=== PATIENT | female | born 1990 | race Hispanic/Latino ===

== ENCOUNTER 2023-07-23 00:51 | Day surgery (SDC) | payer OTHER ==
[2023-07-23] MEDS ORDERED: hydrALAZINE 20 MG/ML VIAL SLOW IVP PRN (01:15)
[2023-07-23 01:56] LABS: Bilirubin Neg (Negative); Blood, Urine 25 (Negative); Clarity Slightly Cloudy (Clear); Glucose, Urine (Dipstick) Normal (Negative); Ketone, Urine 5 mg/dL (Negative); Leukocyte 500 (Negative); Nitrite Negative (Negative); Protein, Urine (Dipstick) 30 mg/dl (Neg-Trace); Specific Gravity, Urine 1.015 (1.005-1.030)
[2023-07-23 02:00] LABS: #Basophils 0.1 10x3/uL (0.0-0.2); #Eosinphils 0.2 10x3/uL (0.0-0.5); #Monocytes 0.6 10x3/uL (0.0-1.1); #Neutrophils 9.5 10x3/uL (1.5-8.4); %Basophils 0.4 % (0.0-2.0); %Eosinophils 1.7 % (0.0-6.0); %Lymphocytes 21.5 % (18.0-47.0); %Monocytes 4.1 % (0.0-10.0); %Neutrophils 71.2 % (40.0-75.0); Hematocrit 39.6 % (34.9-44.5); Hemoglobin 13.2 g/dL (12.0-15.5); Mean Corpuscular HGB CONC 33.3 g/dL (32.0-36.0); Mean Corpuscular Hemoglobin 29.2 pg (27.0-33.0); Mean Corpuscular Volume 87.6 fl (81.6-98.3); Mean Platelet Volume 10.8 fl (7.4-10.4); Platelet Count 230 10x3/uL (150-450); RBC Distribution Width 13.2 % (11.5-14.5); Red Blood Cell (RBC) Count 4.52 10x6/uL (3.90-5.03); White Blood Cell (WBC) Count 13.3 10x3/uL (3.5-10.5)
[2023-07-23 02:11] VITALS: BMI 51.7
[2023-07-23 02:12] LABS: Bacteria/HPF 1+ HPF (None Seen); CAUTI Indications for Culture Pregnancy; RBC/HPF 0-3 HPF (0-3); Squamous Epithelial 0-3 HPF (0-3)
[2023-07-23 02:13] LABS: ALT (SGPT) 9 U/L (8-55); AST (SGOT) 12 U/L (5-34); Albumin 3.5 g/dL (3.5-5.0); Alkaline Phosphatase 60 U/L (40-110); Anion Gap 14 mmol/L (10-20); BUN (Urea Nitrogen) 8 mg/dL (7.0-18.7); Bilirubin, Total 0.5 mg/dL (0.2-1.2); Calc. Creatinine Clearance 284 mL/min (70-130); Calcium 8.5 mg/dL (7.8-10.44); Carbon Dioxide 19 mmol/L (22-29); Chloride 109 mmol/L (98-107); Estimated GFR 122; Globulin 3.1 g/dL (2.4-3.5); Glucose 103 mg/dL (70-105); Potassium 3.9 mmol/L (3.5-5.1); Protein, Total 6.6 g/dL (6.0-8.3); Sodium 138 mmol/L (136-145)
[2023-07-23 02:13] LABS: Urine Culture Reflex Yes Yes
[2023-07-23] MEDS ORDERED: Morphine 4 MG/ML VIAL ONE (02:13)
[2023-07-23] MEDS ORDERED: Morphine 4 MG/ML VIAL SLOW IVP SCH (02:15)
[2023-07-23 02:44] LABS: INR-International Normal Ratio 0.9; PTT 26.1 sec (22.0-33.0); Prothrombin Time 9.9 sec (9.5-12.1)
[2023-07-23] MEDS ORDERED: Ondansetron PF 4 MG/2 ML Vial IVP PRN (04:00)
[2023-07-23] MEDS ORDERED: Promethazine HCl 25 MG/ML VIAL IM PRN (04:00)
[2023-07-23] MEDS ORDERED: cefTRIAXone\\ROCEPHIN 1 GM in Sodium Chloride 0.9% 100 ML IVPB SCH (04:30)
[2023-07-23] MEDS ORDERED: metroNIDAZOLE 500 MG TAB PO SCH (09:00)
== END 2023-07-23 09:35 | disposition home or self-care (01) ==
LOC: CSHLD/OP 00:51
PROVIDERS: ATTEND Obstetrics & Gynecology
DX: O9A.213 Injury, poisoning and certain other consequences of external causes complicating pregnancy, third trimester (principal); S00.83XA Contusion of other part of head, initial encounter; O23.43 Unspecified infection of urinary tract in pregnancy, third trimester; N39.0 Urinary tract infection, site not specified; O98.913 Unspecified maternal infectious and parasitic disease complicating pregnancy, third trimester; A59.9 Trichomoniasis, unspecified; O36.8130 Decreased fetal movements, third trimester, not applicable or unspecified; O16.3 Unspecified maternal hypertension, third trimester; O24.313 Unspecified pre-existing diabetes mellitus in pregnancy, third trimester; Z3A.29 29 weeks gestation of pregnancy
CPT/HCPCS: 36415; 70450; 70486; 71045; 71260; 72125; 72170; 74177; 76819; 80053; 81001; 85025; 85384; 85460; 85610; 85730; 86900; 86901; 87086; 87480; 87510; 87660; 93005; 99285; G0390; J0696; J2270; J2405; J3490

== ENCOUNTER 2023-09-06 12:45 | Day surgery (SDC) | payer OTHER ==
[2023-09-06] MEDS ORDERED: hydrALAZINE 20 MG/ML VIAL SLOW IVP PRN (13:53)
[2023-09-06] MEDS ORDERED: Acetaminophen 500 MG TAB PO PRN (13:53)
[2023-09-06] MEDS ORDERED: Cyclobenzaprine 10 MG TAB PO SCH (14:00)
== END 2023-09-06 14:55 | disposition home or self-care (01) ==
LOC: CSHLD/OP 12:45
PROVIDERS: ATTEND Obstetrics & Gynecology
DX: O99.891 Other specified diseases and conditions complicating pregnancy (principal); R10.2 Pelvic and perineal pain; O24.113 Pre-existing type 2 diabetes mellitus, in pregnancy, third trimester; Z3A.36 36 weeks gestation of pregnancy; Z79.84 Long term (current) use of oral hypoglycemic drugs

== ENCOUNTER 2023-09-10 13:12 | Day surgery (SDC) | payer OTHER ==
[2023-09-10 13:43] VITALS: BMI 51.4
[2023-09-10] MEDS ORDERED: hydrALAZINE 20 MG/ML VIAL SLOW IVP PRN (16:02)
== END 2023-09-10 15:50 | disposition home or self-care (01) ==
LOC: CSHLD/OP 13:12
PROVIDERS: ATTEND Obstetrics & Gynecology
DX: O47.03 False labor before 37 completed weeks of gestation, third trimester (principal); O24.113 Pre-existing type 2 diabetes mellitus, in pregnancy, third trimester; Z3A.36 36 weeks gestation of pregnancy; Z79.84 Long term (current) use of oral hypoglycemic drugs
CPT/HCPCS: 99283

== ENCOUNTER 2023-09-15 18:00 | Inpatient (IN) | payer OTHER ==
[2023-09-15 18:36] VITALS: BMI 51.4
[2023-09-15] MEDS ORDERED: HYDROcodone/Acetaminophen 5/325 mg Tablet PO PRN (19:05)
[2023-09-15] MEDS ORDERED: Carboprost 250 MCG/ML AMP IM PRN (19:05)
[2023-09-15] MEDS ORDERED: Acetaminophen 500 MG TAB PO PRN (19:05)
[2023-09-15] MEDS ORDERED: Ondansetron PF 4 MG/2 ML Vial IVP PRN (19:05)
[2023-09-15] MEDS ORDERED: Diphenoxylate HCl/Atropine Tablet PO PRN (19:05)
[2023-09-15] MEDS ORDERED: Lidocaine 1% (PF) 30 ML VIAL SC PRN (19:05)
[2023-09-15] MEDS ORDERED: Methylergonovine 0.2 MG/ML VIAL IM PRN (19:05)
[2023-09-15] MEDS ORDERED: Zolpidem Tartrate 5 MG TAB PO PRN (19:05)
[2023-09-15] MEDS ORDERED: Misoprostol 200 MCG TAB PR PRN (19:05)
[2023-09-15] MEDS ORDERED: Promethazine HCl 25 MG/ML VIAL IM PRN (19:05)
[2023-09-15] MEDS ORDERED: hydrALAZINE 20 MG/ML VIAL SLOW IVP PRN (19:05)
[2023-09-15] MEDS ORDERED: Ibuprofen 800 MG TAB PO PRN (19:05)
[2023-09-15] MEDS ORDERED: fentaNYL 50 mcg/mL 1 mL Vial SLOW IVP PRN (19:05)
[2023-09-15] MEDS ORDERED: Oxytocin 30 units/NS 500 ML 500 ML IV SCH ×2 (19:15)
[2023-09-15 19:31] LABS: Mean Corpuscular HGB CONC 33.3 g/dL (32.0-36.0); Mean Corpuscular Hemoglobin 28.1 pg (27.0-33.0); Mean Corpuscular Volume 84.2 fl (81.6-98.3); Mean Platelet Volume 11.8 fl (7.4-10.4); Platelet Count 242 10x3/uL (150-450); RBC Distribution Width 13.9 % (11.5-14.5); Red Blood Cell (RBC) Count 4.63 10x6/uL (3.90-5.03); White Blood Cell (WBC) Count 14.4 10x3/uL (3.5-10.5)
[2023-09-15 19:37] LABS: ALT (SGPT) 9 U/L (8-55); AST (SGOT) 19 U/L (5-34); Albumin 3.4 g/dL (3.5-5.0); Alkaline Phosphatase 100 U/L (40-110); Anion Gap 15 mmol/L (10-20); BUN (Urea Nitrogen) 8 mg/dL (7.0-18.7); Bilirubin, Total 0.4 mg/dL (0.2-1.2); Calc. Creatinine Clearance 272 mL/min (70-130); Calcium 8.5 mg/dL (7.8-10.44); Carbon Dioxide 19 mmol/L (22-29); Chloride 104 mmol/L (98-107); Estimated GFR 121; Globulin 3.1 g/dL (2.4-3.5); Glucose 81 mg/dL (70-105); Potassium 4.3 mmol/L (3.5-5.1); Protein, Total 6.5 g/dL (6.0-8.3); Sodium 134 mmol/L (136-145)
[2023-09-15] MEDS: Misoprostol 100 MCG TAB VAG SCH ×2 (19:40→23:29)
[2023-09-15] MEDS: Lactated Ringer's 1,000 ML IV SCH (19:41)
[2023-09-15 19:55] LABS: Syphilis Antibody Nonreactive (Nonreactive); Syphilis Antibody Index 0.04 S/CO (<1.00 Non-Reactive)
[2023-09-15 19:57] LABS: HBSAg Index 0.17 S/CO (0-0.99); Hep B Surf Ag - L&D Non-Reactive S/CO (NonReactive)
[2023-09-16] MEDS ORDERED: fentaNYL/Ropivacaine Epidural 100 ML ONE (01:16)
[2023-09-16] MEDS ORDERED: Moisturizing Cream (Eucerin) 113 GM JAR TOP PRN (02:10)
[2023-09-16] MEDS ORDERED: diphenhydrAMINE 50 MG/ML VIAL IVP PRN (02:10)
[2023-09-16] MEDS ORDERED: Ondansetron PF 4 MG/2 ML Vial IVP PRN ×2 (02:10→19:15)
[2023-09-16] MEDS ORDERED: Naloxone HCl 0.4 mg/ml Vial IVP PRN ×2 (02:10)
[2023-09-16] MEDS ORDERED: Lactated Ringer's 500 ML IV PRN (02:10)
[2023-09-16] MEDS ORDERED: ePHEDrine Sulfate 50 MG/10 ML VIAL SLOW IVP PRN (02:10)
[2023-09-16] MEDS ORDERED: Acetaminophen 325 MG TAB PO PRN (02:10)
[2023-09-16] MEDS ORDERED: Promethazine HCl 25 MG/ML VIAL IM PRN ×2 (02:10→19:15)
[2023-09-16] MEDS ORDERED: Communication Order-Pharmacy FS SCH (02:15)
[2023-09-16] MEDS ORDERED: fentaNYL 2 mcg/Ropivacaine 0.2% Epidural 100 ML CADD EPIDURAL SCH (02:15)
[2023-09-16] MEDS ORDERED: Bupivacaine 0.25% HCL 30 ML VIAL ONE (13:00)
[2023-09-16 17:04] LABS: Analyzer IN Cardio CS NICU; RapidComm Collect By CBN; pH (Cord, venous) 7.359 (7.250-7.350)
[2023-09-16 17:05] LABS: Analyzer IN Cardio CS NICU; RapidComm Collect By CBN
[2023-09-16] MEDS ORDERED: Tranexamic Acid 1,000 MG/10 ML VIAL ONE (18:07)
[2023-09-16] MEDS ORDERED: fentaNYL 50 mcg/mL 1 mL Vial ONE (18:25)
[2023-09-16] MEDS ORDERED: Lanolin Ointment 7 GM TUBE TOP PRN (19:15)
[2023-09-16] MEDS ORDERED: Milk Of Magnesia 30 ML UDCUP PO PRN (19:15)
[2023-09-16] MEDS ORDERED: Preparation H Ointment 28 GM TUBE PR PRN (19:15)
[2023-09-16] MEDS ORDERED: Boostrix 0.5 ML (Tdap) VIAL (>/=7 yrs of age) IM ONE (19:15)
[2023-09-16] MEDS ORDERED: Benzocaine-Menthol 82.5 ML CAN TOP PRN (19:15)
[2023-09-16] MEDS ORDERED: Bisacodyl 10 MG SUPP PR PRN (19:15)
[2023-09-16] MEDS ORDERED: hydrALAZINE 20 MG/ML VIAL SLOW IVP PRN (19:15)
[2023-09-16] MEDS ORDERED: HYDROcodone/Acetaminophen 5/325 mg Tablet PO PRN (19:15)
[2023-09-16] MEDS ORDERED: diphenhydrAMINE 25 MG CAP PO PRN (19:15)
[2023-09-16] MEDS: Misoprostol 100 MCG TAB VAG SCH ×2 (21:41→21:42)
[2023-09-16] MEDS: Lactated Ringer's 1,000 ML IV SCH (21:42)
[2023-09-16] MEDS ORDERED: Ibuprofen 800 MG TAB PO SCH (22:00)
[2023-09-16] MEDS: Docusate 100 MG CAP PO SCH (22:08)
[2023-09-17] MEDS: Ibuprofen 800 MG TAB PO SCH ×3 (01:56→19:10)
[2023-09-17] MEDS: HYDROcodone/Acetaminophen 5/325 mg Tablet PO PRN ×2 (04:20→13:51)
[2023-09-17 04:33] LABS: Hematocrit 35.5 % (34.9-44.5); Hemoglobin 12.1 g/dL (12.0-15.5); Mean Corpuscular HGB CONC 34.1 g/dL (32.0-36.0); Mean Corpuscular Hemoglobin 28.5 pg (27.0-33.0); Mean Corpuscular Volume 83.7 fl (81.6-98.3); Mean Platelet Volume 11.3 fl (7.4-10.4); Platelet Count 212 10x3/uL (150-450); RBC Distribution Width 13.6 % (11.5-14.5); Red Blood Cell (RBC) Count 4.24 10x6/uL (3.90-5.03); White Blood Cell (WBC) Count 15.1 10x3/uL (3.5-10.5)
[2023-09-17] MEDS: Docusate 100 MG CAP PO SCH ×2 (07:59→21:44)
[2023-09-17] MEDS: metFORMIN 500 MG TAB PO SCH ×2 (07:59→19:10)
[2023-09-17] MEDS: Prenatal Vitamin 1 TAB PO SCH (07:59)
[2023-09-17] MEDS ORDERED: Ferrous Sulfate 325 MG TAB PO SCH (08:00)
[2023-09-18] MEDS: Ibuprofen 800 MG TAB PO SCH ×2 (02:45→11:58)
[2023-09-18 07:46] VITALS: BP 109/55; TEMP 97.6
[2023-09-18] MEDS: Docusate 100 MG CAP PO SCH (08:06)
[2023-09-18] MEDS: Prenatal Vitamin 1 TAB PO SCH (08:06)
[2023-09-18] MEDS: metFORMIN 500 MG TAB PO SCH (08:06)
== END 2023-09-18 14:30 | disposition home or self-care (01) | DRG 806 ==
LOC: CSHLD 18:06 → CSHPP 09-16 21:10
PROVIDERS: ADMIT Student in an Organized Health Care Education/Training Program; ATTEND Student in an Organized Health Care Education/Training Program
PROC: 10E0XZZ Delivery of Products of Conception, External Approach (ICD-10-PCS; principal; 2023-09-16)
PROC: 0UQGXZZ Repair Vagina, External Approach (ICD-10-PCS; 2023-09-16)
DX: O36.63X0 Maternal care for excessive fetal growth, third trimester, not applicable or unspecified (principal); O71.4 Obstetric high vaginal laceration alone; Z37.0 Single live birth; Z3A.37 37 weeks gestation of pregnancy; E66.9 Obesity, unspecified; O69.81X0 Labor and delivery complicated by cord around neck, without compression, not applicable or unspecified; O66.0 Obstructed labor due to shoulder dystocia; O24.425 Gestational diabetes mellitus in childbirth, controlled by oral hypoglycemic drugs; O99.214 Obesity complicating childbirth
CPT/HCPCS: 36415; 36416; 80053; 82805; 85027; 86780; 86850; 86900; 86901; 87340; J2210; J2590; J3010; J7120; S0020